=== PATIENT | male | born 1965 | race Caucasian/White ===

== ENCOUNTER → 2019-09-17 | Outpatient (CLI) | payer OTHER | LOC: MRI 09:19 | PROVIDERS: ATTEND Neuromusculoskeletal Medicine & OMM | DX: M51.27 Other intervertebral disc displacement, lumbosacral region (principal); M89.38 Hypertrophy of bone, other site ==

== ENCOUNTER → 2019-10-15 | Outpatient (CLI) | payer OTHER ==
[~2019-10-15] VITALS: Ht 182.9 cm; Wt 79.4 kg
[~2019-10-15] MED LIST: CRESTOR20 MG PO; NABUMETONE 500500 M1 PO
[2019-10-15 08:10] VITALS: BP 141/86
--- NOTE | 2019-10-15 08:22 | NUR ---
Pain Clinic Assessment: 1. History of Osteoarthritis: BACK HANDS History of Rheumatoid Arthritis: Not Applicable 2. Height: 6 ft. 0 in. 182.9 cm. Weight: 175.0 lb. oz. 79.380 kg. Patient's BMI: 23.7 3. Vital Signs: BP: 141/86 Pulse: 69 Resp: 16 Temp: 02 Sat: 98 ECG Mon: 4. Pain Intensity: 3 5. Fall Risk: Dizziness: N Needs help standing or walking: N Fallen in the last 3 months: N Fall risk comments: 6. Patient on Blood Thinner: None 7. History of Hypertension: 8. Opioid Therapy greater than 6 weeks: N Opiate Contract Signed: 9. Risk Assessment Tool Provided: LOW RISK 03/14 10. Functional Assessment Tool: 11. Recreational Drug Use: Never Drug Type: Tobacco Use: Never Smoker Tobacco Type: Amount or Packs/day: How Many Years: Alcohol Use: No Frequency: Quant:
--- NOTE | 2019-10-28 08:23 | HPC ---
[facility] [place] [address] PAIN MANAGEMENT CONSULTATION Name: BURTON SALVADOR Room #: REG MITCHEL Saxena.#: [id number] Admission: 10/15/19 Attend Phys: Bee Begum MD Discharge: Date of : 69 Report #: [id number] THIS REPORT FOR: cc: Thom Matos,Bee Peters MD ~ CC: Bee Matos DATE OF SERVICE: 10/15/2019 CHIEF COMPLAINT: Left hip pain HISTORY: The patient is a 54-year-old gentleman, who has been referred to the Pain Clinic for evaluation. He has had pain involving his hip for some time. It involves the left hip and radiates down into the left calf. He describes it as continuous, steady, constant, burning, cramping, aching, pulling, throbbing, and sharp. He rates it as a 3/10 today. He notes that the pain can be debilitating. It has been getting more and more problematic over the last 2 months. Pain radiates down the posterior portion of his left leg and thigh down into the calf. It is making him more difficult to walk. He has been somewhat concerned about the pain. He did have a sister who as a result of a missed diagnosis per his report. He is concerned that he may have cancer in the affected area. He has noted some problems with sleeping because of the pain. 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 He is not as active in the physical portions of the business, but still somewhat engaged. ALLERGIES: No known drug allergies. CURRENT MEDICATIONS: Nabumetone 500 mg, Crestor 20 mg. PAST MEDICAL HISTORY: No significant history. PAST SURGICAL HISTORY: No past surgical history. 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 REVIEW OF SYSTEMS: Generally good health, wears reading glasses, depression, fatigue, and weakness. DIAGNOSTIC DATA: MRI of the lumbar spine dated 09/17/2019 reveals L5-S1 left paracentral posterior disk herniation, which effaces the left lateral recess and demonstrates mass effect on traversing left S1 nerve root. The disk fragment measures 1.2 x 0.8 cm. No significant central canal stenosis or neural foraminal narrowing. [address] [address] PAIN MANAGEMENT CONSULTATION Name: BURTON SALVADOR Room #: REG CL Afsaneh#: [id number] Admission: 10/15/19 Attend Phys: Bee Begum MD Discharge: Date of : 69 Report #: [id number] Impression: Left paracentral posterior disk herniation, which severely effacing the left lateral recess and demonstrates mass effect on the traversing left S1 nerve root. PAIN CLINIC ASSESSMENT AND PQRS: 1. Osteoarthritic changes and complaint of back pain and pain in his hands. The patient is not being treated for rheumatoid arthritis. 2. Height 6 feet 0 inch, weight 175 pounds, BMI is 23.7. 3. Vital signs: Blood pressure is 141/86, pulse 69, respiratory rate 16, room air saturation 98%. 4. Pain intensity: 3/10. 5. Fall history: The patient has not fallen in the last 3 months. 6. Blood thinner: The patient is not on a blood thinning medication. 7. Hypertension: The patient is not being treated for hypertension. 8. Opioids greater than 6 weeks: The patient is not on opioid regimen. 9. Risk assessment tool: Low for opioid use. 10. Functional assessment tool: 52/70. 11. Recreational drug use: The patient denies. 12. Tobacco: The patient has never smoked. 13. Alcohol: The patient denies other than occasional use of alcoholic beverages. PHYSICAL EXAMINATION: GENERAL: The patient is a well-developed, well-nourished, white male. Appears his stated age. He is alert and oriented x 3. His affect is appropriate. Speech is fluent. HEENT: Normocephalic, atraumatic. Extraocular eye muscles intact. Sclerae nonicteric. Mucous membranes are moist. NECK: Without adenopathy or JVD. HEART: Regular rate. ABDOMEN: Nontender. LUNGS: Clear. MUSCULOSKELETAL: The patient is without significant scoliosis, kyphosis or lordosis. The patient has some pain and discomfort that radiates down the left part of his buttocks and the posterior portion of the thigh down into the calf in the L5-S1 dermatomal distribution. The patient complains of some pain in the left hip area, which is near the sciatic outflow tract. IMPRESSION: Lumbar radiculopathy at left L5-S1 dermatomal distribution. RECOMMENDATIONS: We discussed treatment options with the patient. A model was used to indicate the area of probable pathology. The patient will return to the Pain Clinic, at which time an epidural steroid injection will be considered. We have discussed the risks and benefits of the procedure, they include but are not limited to infection, worsening pain, no improvement in pain, nerve damage, bleeding, and headache. [facility] [address] [place] [address] PAIN MANAGEMENT CONSULTATION Name: BURTON SALVADOR Room #: REG CLCamilo SaxenaJessica#: [id number] Admission: 10/15/19 Attend Phys: Bee Begum MD Discharge: Date of : 69 Report #: [id number] We would like to thank you for letting us participate in his care. We hope he continues to improve. <ELECTRONICALLY SIGNED> By: Bee Begum MD 10/28/19 0823 [id number] Bee Begum MD /nt
== END ==
LOC: PAIN 06:49
PROVIDERS: ATTEND Anesthesiology Pain Medicine
DX: M54.17 Radiculopathy, lumbosacral region (principal); Z79.899 Other long term (current) drug therapy